=== PATIENT | female | born 1950 | race Caucasian/White ===

== ENCOUNTER 2020-05-03 20:32 | Emergency (ER) | payer MEDICARE, BC ==
[2020-05-03] MEDS ORDERED: Sodium Chloride 0.9% 10 ML Syringe FLUSH PRN (21:49)
[2020-05-03] MEDS ORDERED: Sodium Chloride 0.9% 1,000 ML IV STA (21:49)
--- NOTE | 2020-05-03 21:51 | EDM.PDOC ---
ED HPI GENERAL MEDICAL PROBLEM - General Chief Complaint: Abdominal Pain Stated Complaint: RT UPPER QUADRANT PAIN Time Seen by Provider: 05/03/20 21:37 Source of Information: Reports: Patient, RN Notes Reviewed History Limitations: Reports: No Limitations - History of Present Illness INITIAL COMMENTS - FREE TEXT/NARRATIVE: 69-year-old female presents emergency department today complaint of right upper quadrant pain, she states it started earlier today is quite intense states improved a little bit no nausea vomiting no problems with bowel movements no change with food of abdominal surgeries hysterectomy Right Upper Abdomen Pain Score (Numeric/FACES): 3 - Related Data Allergies Allergy/AdvReac Type Severity Reaction Status Date / Time ibuprofen Allergy Hives Verified 06/21/16 12:46 indomethacin [From Indocin] Allergy Hives Verified 06/21/16 12:46 Penicillins Allergy Hives Verified 06/21/16 12:46 Home Meds: Home Meds buPROPion [buPROPion XL] 1 tab PO DAILY 06/21/16 [History] Escitalopram [Lexapro] 20 mg PO DAILY 05/03/20 [History] atorvaSTATin [Lipitor] 20 mg PO BEDTIME 05/03/20 [History] Past Medical History HEENT History: Reports: Impaired Vision Psychiatric History: Reports: Depression Endocrine/Metabolic History: Reports: Other (See Below) Other Endocrine/Metabolic History: hypoglycemia in past last - Infectious Disease History Infectious Disease History: Reports: Chicken Pox - Past Surgical History Female Surgical History: Reports: Hysterectomy Social & Family History - Tobacco Use Tobacco Use Status *Q: Never Tobacco User - Caffeine Use Caffeine Use: Reports: Coffee - Recreational Drug Use Recreational Drug Use: No ED ROS GENERAL - Review of Systems Review Of Systems: See Below Constitutional: Reports: No Symptoms HEENT: Reports: No Symptoms Respiratory: Reports: No Symptoms Cardiovascular: Reports: No Symptoms GI/Abdominal: Reports: Abdominal Pain, Flatus. Denies: Constipation, Diarrhea, Nausea, Vomiting : Reports: No Symptoms ED EXAM, GI/ABD - Physical Exam Exam: See Below Exam Limited By: No Limitations General Appearance: Alert, WD/WN, No Apparent Distress Respiratory/Chest: No Respiratory Distress, Lungs Clear, Normal Breath Sounds, No Accessory Muscle Use, Chest Non-Tender Cardiovascular: Regular Rate, Rhythm, No Murmur GI/Abdominal Exam: Normal Bowel Sounds, Soft, Tender (Right upper quadrant) Course - Vital Signs Last Recorded V/S: Last Vital Signs Temp 96.3 F L 05/03/20 22:20 Pulse 66 05/03/20 22:53 Resp 16 05/03/20 22:20 BP 130/82 05/03/20 22:53 Pulse Ox 97 05/03/20 22:20 - Orders/Labs/Meds Orders: Active Orders 24 hr Category Date Time Status Peripheral IV Care [RC] . DIRECTED Care 05/03/20 21:49 Active Iopamidol [Isovue-300 (61%)] Med 05/03/20 22:28 Active 100 ml IV . DIRECTED PRN Sodium Chloride 0.9% [Normal Saline] 75 ml Med 05/03/20 22:30 Active IV ASDIRECTED Sodium Chloride 0.9% [Saline Flush] Med 05/03/20 21:49 Active 10 ml FLUSH ASDIRECTED PRN Peripheral IV Insertion Adult [OM.PC] Urgent Oth 05/03/20 21:49 Ordered Medication Orders Sodium Chloride (Normal Saline) 75 mls @ 3 mls/sec IV ASDIRECTED DOMINGO Last Admin: 05/03/20 22:40 Dose: 3 mls/sec Documented by: [email or web address] Iopamidol (Isovue-300 (61%)) 100 ml IV . DIRECTED PRN PRN Reason: RADIOLOGY EXAM Stop: 05/04/20 22:29 Last Admin: 05/03/20 22:40 Dose: 100 ml Documented by: HOLLIS Sodium Chloride (Saline Flush) 10 ml FLUSH ASDIRECTED PRN PRN Reason: Keep Vein Open Last Admin: 05/03/20 22:18 Dose: 10 ml Documented by: EVER Labs: Laboratory Tests 05/03/20 05/03/20 05/03/20 Range/Units 22:04 22:04 22:04 WBC 9.1 (4.5-11.0) K/uL RBC 4.39 (3.30-5.50) M/uL Hgb 13.2 (12.0-15.0) g/dL Hct 39.6 (36.0-48.0) % MCV 90 (80-98) fL MCH 30 (27-31) pg MCHC 33 (32-36) % Plt Count 320 (150-400) K/uL Neut % (Auto) 59 (36-66) % Lymph % (Auto) 25 (24-44) % Stephens % (Auto) 11 H (2-6) % Eos % (Auto) 4 (2-4) % Baso % (Auto) 1 (0-1) % Sodium 136 L (140-148) mmol/L Potassium 4.0 (3.6-5.2) mmol/L Chloride 101 (100-108) mmol/L Carbon Dioxide 29 (21-32) mmol/L Anion Gap 10.0 (5.0-14.0) mmol/L BUN 25 H (7-18) mg/dL Creatinine 1.0 (0.6-1.0) mg/dL Est Cr Clr Drug Dosing 43.18 mL/min Estimated GFR (MDRD) 55 L (>60) Glucose 94 (74-106) mg/dL Lactic Acid 1.1 (0.4-2.0) mmol/L Calcium 8.6 (8.5-10.1) mg/dL Total Bilirubin 0.2 (0.2-1.0) mg/dL AST 22 (15-37) U/L ALT 28 (12-78) U/L Alkaline Phosphatase 88 (46-116) U/L Troponin I < 0.017 (0.000-0.056) ng/mL Total Protein 6.3 L (6.4-8.2) g/dL Albumin 3.3 L (3.4-5.0) g/dL Globulin 3.0 (2.3-3.5) g/dL Albumin/Globulin Ratio 1.1 L (1.2-2.2) Lipase 157 (73-393) U/L Urine Color (YELLOW) Urine Appearance (CLEAR) Urine pH (5.0-8.0) Ur Specific [place] (1.008-1.030) Urine Protein (NEGATIVE) mg/dL Urine Glucose (UA) (NEGATIVE) mg/dL Urine Ketones (NEGATIVE) mg/dL Urine Occult Blood (NEGATIVE) Urine Nitrite (NEGATIVE) Urine Bilirubin (NEGATIVE) Urine Urobilinogen (0.2-1.0) EU/dL Ur Leukocyte Esterase (NEGATIVE) Urine RBC (0-5) Urine WBC (0-5) Ur Epithelial Cells Amorphous Sediment Urine Bacteria Urine Mucus /14/20 Range/Units 22:39 WBC (4.5-11.0) K/uL RBC (3.30-5.50) M/uL Hgb (12.0-15.0) g/dL Hct (36.0-48.0) % MCV (80-98) fL MCH (27-31) pg MCHC (32-36) % Plt Count (150-400) K/uL Neut % (Auto) (36-66) % Lymph % (Auto) (24-44) % Stephens % (Auto) (2-6) % Eos % (Auto) (2-4) % Baso % (Auto) (0-1) % Sodium (140-148) mmol/L Potassium (3.6-5.2) mmol/L Chloride (100-108) mmol/L Carbon Dioxide (21-32) mmol/L Anion Gap (5.0-14.0) mmol/L BUN (7-18) mg/dL Creatinine (0.6-1.0) mg/dL Est Cr Clr Drug Dosing mL/min Estimated GFR (MDRD) (>60) Glucose (74-106) mg/dL Lactic Acid (0.4-2.0) mmol/L Calcium (8.5-10.1) mg/dL Total Bilirubin (0.2-1.0) mg/dL AST (15-37) U/L ALT (12-78) U/L Alkaline Phosphatase (46-116) U/L Troponin I (0.000-0.056) ng/mL Total Protein (6.4-8.2) g/dL Albumin (3.4-5.0) g/dL Globulin (2.3-3.5) g/dL Albumin/Globulin Ratio (1.2-2.2) Lipase (73-393) U/L Urine Color Yellow (YELLOW) Urine Appearance Clear (CLEAR) Urine pH 8.0 (5.0-8.0) Ur Specific [place] 1.020 (1.008-1.030) Urine Protein Negative (NEGATIVE) mg/dL Urine Glucose (UA) Negative (NEGATIVE) mg/dL Urine Ketones Negative (NEGATIVE) mg/dL Urine Occult Blood Negative (NEGATIVE) Urine Nitrite Negative (NEGATIVE) Urine Bilirubin Negative (NEGATIVE) Urine Urobilinogen 0.2 (0.2-1.0) EU/dL Ur Leukocyte Esterase Negative (NEGATIVE) Urine RBC 0-5 (0-5) Urine WBC 0-5 (0-5) Ur Epithelial Cells Few Amorphous Sediment Few Urine Bacteria Not seen Urine Mucus Not seen Meds: Medications Generic Name Dose Route Start Last Admin Trade Name Glendy PRN Reason Stop Dose Admin Sodium Chloride 75 mls @ 3 mls/sec 05/03/20 22:30 05/03/20 22:40 Normal Saline IV 3 mls/sec ASDIRECTED DOMINGO Administration Iopamidol 100 ml 05/03/20 22:28 05/03/20 22:40 Isovue-300 (61%) IV 05/04/20 22:29 100 ml . DIRECTED PRN Administration RADIOLOGY EXAM Sodium Chloride 10 ml 05/03/20 21:49 05/03/20 22:18 Saline Flush FLUSH 10 ml ASDIRECTED PRN Administration Keep Vein Open Discontinued Medications Generic Name Dose Route Start Last Admin Trade Name Glendy PRN Reason Stop Dose Admin Fentanyl 50 mcg 05/03/20 22:39 05/03/20 22:52 Sublimaze IVPUSH 05/03/20 22:40 50 mcg ONETIME ONE Administration Sodium Chloride 1,000 mls @ 500 mls/hr 05/03/20 21:49 05/03/20 22:18 Normal Saline IV 05/03/20 23:48 500 mls/hr .BOLUS STA Administration Sodium Chloride 10 ml 05/03/20 22:28 05/03/20 22:40 Saline Flush FLUSH 05/03/20 22:29 10 ml ONETIME ONE Administration Departure - Departure Time of Disposition: 23:58 Disposition: Home, Self-Care 01 Condition: Fair Clinical Impression: Functional constipation - Discharge Information Instructions: Constipation, Adult Referrals: Rani Engel MD [Primary Care Provider] - Forms: ED Department Discharge Additional Instructions: Try the MiraLAX 1 capful per day until loose stools, please followup with your primary care provider in 3-5 days if not better, please call return to the emergency department with worsening of symptoms. Sepsis Event Note (ED) - Focused Exam Vital Signs: Vital Signs Temp Pulse Resp BP Pulse Ox 05/03/20 22:53 66 130/82 05/03/20 22:20 96.3 F L 82 16 133/67 97 05/03/20 21:39 96.3 F L 82 16 133/67 97 - My Orders Last 24 Hours: My Active Orders 05/03/20 21:49 Peripheral IV Care [RC] . DIRECTED Sodium Chloride 0.9% [Saline Flush] 10 ml FLUSH ASDIRECTED PRN Peripheral IV Insertion Adult [OM.PC] Urgent 05/03/20 22:28 Iopamidol [Isovue-300 (61%)] 100 ml IV . DIRECTED PRN 05/03/20 22:30 Sodium Chloride 0.9% [Normal Saline] 75 ml IV ASDIRECTED - Assessment/Plan Last 24 Hours: My Active Orders 05/03/20 21:49 Peripheral IV Care [RC] . DIRECTED Sodium Chloride 0.9% [Saline Flush] 10 ml FLUSH ASDIRECTED PRN Peripheral IV Insertion Adult [OM.PC] Urgent 05/03/20 22:28 Iopamidol [Isovue-300 (61%)] 100 ml IV . DIRECTED PRN 05/03/20 22:30 Sodium Chloride 0.9% [Normal Saline] 75 ml IV ASDIRECTED Plan: Assessment Acuity = acute Site and laterality = functional constipation Etiology = slow transit time Manifestations = abdominal pain Location of injury = Home Lab values = CBC, CMP, troponin all within normal limits CT scan shows no acute process except for moderate amount of stool Plan Plan is to try MiraLAX at home follow-up primary care 3 to 5 days if not better This note was dictated using Lynk voice recognition software please call with any questions on syntax or grammar.
[2020-05-03] MEDS ORDERED: Iopamidol 612 MG/ML 100 ML Bottle IV PRN (22:28)
[2020-05-03] MEDS ORDERED: Sodium Chloride 0.9% 10 ML Syringe FLUSH ONE (22:28)
[2020-05-03] MEDS ORDERED: Sodium Chloride 0.9% 75 ML IV SCH (22:30)
[2020-05-03] MEDS ORDERED: fentaNYL 100 MCG/2 ML SDV IVPUSH ONE (22:39)
[2020-05-03 22:54] VITALS: BP 130/82; PULSE 66
--- NOTE | 2020-05-03 23:48 | CRLCT ---
INDICATION: Right upper quadrant pain TECHNIQUE: Axial images were obtained from the diaphragm to the pubic symphysis. Reformats were obtained in the coronal and sagittal plane. IV Contrast: 100 cc Isovue-300 Oral Contrast: None COMPARISON: None. FINDINGS: Lower chest: Unremarkable. Liver: Normal in contour with 4 millimeter hypodense lesion within the left lobe of the liver which is too small for characterization. Statistically speaking, in the absence of a known primary malignancy this would likely represent an incidental finding. Gallbladder and bile ducts: Unremarkable. No stones or inflammation. No biliary dilatation. Spleen: Unremarkable. Normal in size without mass. Pancreas: Unremarkable. No mass or inflammation. Adrenal glands: Unremarkable. No nodules. Kidneys: Unremarkable. No masses, stones, or hydronephrosis. Vasculature: Unremarkable. GI tract: The stomach is unremarkable. Appendix is seen and is unremarkable. Moderate amount of stool within the colon. Small bowel as upper normal in caliber without a well-defined transition point. Slight fold thickening questioned at the proximal jejunum. Pelvis: Unremarkable. Bones: Degenerative disc disease lumbar spine with grade 1 anterolisthesis L4-5 secondary to facet hypertrophy. IMPRESSION: 1. Upper normal caliber small bowel with slight fold thickening questioned in the proximal jejunum. Appearance is suspicious for an enteritis/ileus. Please note that all CT scans at this facility use dose modulation, iterative reconstruction, and/or weight-based dosing when appropriate to reduce radiation dose to as low as reasonably achievable. Dictated by Carl Snider MD @ May 03 2020 11:40PM Signed by Dr. Carl Snider @ May 03 2020 11:46PM
== END 2020-05-04 00:20 | disposition home or self-care (01) ==
LOC: JP.ED 20:32
DX: K59.04 Chronic idiopathic constipation (principal); F32.9 Major depressive disorder, single episode, unspecified; Z88.6 Allergy status to analgesic agent; Z88.0 Allergy status to penicillin; Z79.899 Other long term (current) drug therapy
CPT/HCPCS: 36415; 74177; 80053; 81001; 83605; 83690; 84484; 85025; 96374; 99284; J3010; J7030; Q9967

== ENCOUNTER 2023-07-25 10:54 | Day surgery (SDC) | payer MEDICARE, BC ==
[~2023-07-25 10:54] MED LIST: Bupivacaine 0.5% 30 ML SDV ONE; Dexamethasone 4 MG/ML SDV ONE; Midazolam 1 MG/ML 2 ML SDV ONE; Ondansetron 4 MG/2 ML SDV ONE; Propofol 200 MG/20 ML SDV ONE; fentaNYL 100 MCG/2 ML SDV ONE
[2023-07-25 11:18] LABS: HEMOGLOBIN 13.6 g/dL (11.2-15.5); MEAN CORPUSCULAR HEMOGLOBIN 30.4 pg (31.6-35.5); MEAN CORPUSCULAR VOLUME 89.5 fL (81.4-99.0); RED BLOOD CELL COUNT 4.47 M/uL (3.77-5.24); WHITE BLOOD CELL COUNT,WBC 7.4 K/uL (3.2-11.0)
[2023-07-25] MEDS: Nozin Nasal Sanitizer NASBOTH ONE (11:27)
[2023-07-25 11:37] LABS: ALANINE AMINOTRANSFERASE,ALT 26 U/L (12-78); ALBUMIN 3.3 g/dL (3.4-5.0); ALKALINE PHOSPHATASE 88 U/L (46-116); ASPARTATE AMNIOTRANSFERASE,AST 21 U/L (15-37); BILIRUBIN TOTAL 0.5 mg/dL (0.2-1.0); BLOOD UREA NITROGEN,BUN 13 mg/dL (7-18); CALCIUM 8.4 mg/dL (8.5-10.1); CARBON DIOXIDE,CO2 27 mmol/L (21-32); CHLORIDE,CL 102 mmol/L (100-108); CREATININE 0.9 mg/dL (0.6-1.0); EST CRCL DRUG DOSING (CG) 45.34 mL/min; ESTIMATED GFR 68 mL/min (>60); GLUCOSE RANDOM 91 mg/dL (74-106); POTASSIUM,K 4.2 mmol/L (3.6-5.2); PROTEIN TOTAL,TP 6.7 g/dL (6.4-8.2); SODIUM,NA 138 mmol/L (140-148)
[2023-07-25] MEDS: Lactated Ringers 1,000 ML IV SCH (11:43)
[2023-07-25 12:02] LABS: ANION GAP 13.2 mmol/L (5.0-14.0)
[2023-07-25] MEDS: ceFAZolin 1 GM in Premix Bag 1 BAG IV ONE (16:25)
[2023-07-25 19:55] VITALS: BP 143/75; PULSE 81
== END 2023-07-25 20:54 | disposition home or self-care (01) ==
LOC: JP.SDS 10:54
PROVIDERS: ATTEND Specialist
DX: M75.42 Impingement syndrome of left shoulder (principal); F32.A Depression, unspecified; F41.9 Anxiety disorder, unspecified
CPT/HCPCS: 29819; 36415; 80053; 85027; A9270; C1713; J0665; J0690; J1100; J2250; J2405; J2704; J3010; J7120

== ENCOUNTER 2023-12-15 17:26 | Emergency (ER) | payer MEDICARE, BC ==
[2023-12-15 17:39] VITALS: BP 141/64; PULSE 61
== END 2023-12-15 19:27 | disposition home or self-care (01) ==
LOC: JP.ED 17:26
DX: H53.8 Other visual disturbances (principal); E78.00 Pure hypercholesterolemia, unspecified; Z88.6 Allergy status to analgesic agent; Z88.0 Allergy status to penicillin; Z88.8 Allergy status to other drugs, medicaments and biological substances; Z79.899 Other long term (current) drug therapy; Z86.16 Personal history of COVID-19; Z90.710 Acquired absence of both cervix and uterus
CPT/HCPCS: 82947; 99283; 99284